=== PATIENT | female | born 1980 | race Caucasian/White ===

== ENCOUNTER → 2017-01-21 | Day surgery (SDC) | payer OTHER ==
[~2017-01-21] VITALS: Ht 167.6 cm; Wt 72.1 kg
[~2017-01-21] MED LIST: HYDROmorphone HCL 1 MG/ML SYRINGE (J1170) IV PRN; KETOROLAC 60 MG/2 ML VIAL (J1885) As Ordered ONE; LIDOCAINE 1% SDV INJ 30 ML VIAL As Ordered ONE; LIDOCAINE 2% INJ 100 MG/5 ML SDV (FOR ANES.) As Ordered ONE; LR 1,000 ML IV SCH; MAXA10TA14 PO; MIDAZOLAM INJ 2 MG/2 ML VIAL (J2250) As Ordered ONE; ONDANSETRON 4MG/2ML VIAL (J2405) As Ordered ONE; ONDANSETRON 4MG/2ML VIAL (J2405) IV PRN; PERCOCET 5MG/325MG TAB PO PRN; PROPOFOL 200 MG/20 ML VIAL As Ordered ONE; SILVER NITRATE APPLICATOR As Ordered ONE; dexameTHASONE 4 MG/ML 1ML VIAL (J1100) As Ordered ONE; fentaNYL 100 MCG/2 ML INJECTION (J3010) As Ordered ONE; fentaNYL 100 MCG/2 ML INJECTION (J3010) IV PRN
[2017-01-21 08:21] LABS: MEAN CORPUSCULAR HGB CONC 32.9 g/dl (32.0-36.5); MEAN CORPUSCULAR VOLUME 91.2 fl (80.0-96.0); RED CELL DISTRIBUTION WIDTH 12.9 % (11.5-14.5); WHITE BLOOD COUNT 5.8 K/mm3 (4.0-10.0)
[2017-01-21 08:27] LABS: CONTROL LINE HCG INT CTR LINE PRESENT
[2017-01-21 11:06] VITALS: BP 136/78
--- NOTE | 2017-01-26 06:32 | RO ---
DATE OF PROCEDURE: 01/21/2017 PREOPERATIVE DIAGNOSES: 1. Abnormal uterine bleeding. 2. Endometrial polyp. POSTOPERATIVE DIAGNOSES: 1. Abnormal uterine bleeding. 2. Endometrial polyp. PROCEDURE: 1. Diagnostic hysteroscopy. 2. Dilation and curettage. SURGEON: Triny Espinosa MD [employer]: None. ANESTHESIA: General LMA. ESTIMATED BLOOD LOSS: 10 mL. FLUIDS: 700 mL of Lactated Ringer's. URINE OUTPUT: Not recorded. CONDITION: Stable. COMPLICATIONS: None. SPECIMEN: Endometrial curettings. ANTIBIOTICS: Not indicated. INDICATION: The patient is a 36-year-old with abnormal uterine bleeding notable for endometrial bleeding and on ultrasound was noted to have an endometrial polyp. FINDINGS: Both ostia visualized bilaterally. Fluffy endometrium noted. On the right midbody there was noted to be approximately 5 mm polyp projecting from the endometrium. OPERATIVE PROCEDURE: The risks, benefits, indications and alternatives of procedure were reviewed with the patient and informed consent was obtained. The patient was taken to the operating room where general anesthesia was obtained without difficulty. The patient was placed in low lithotomy position using Danial stirrups and exam under anesthesia was then performed significant for a midline mobile 10 weeks size anteverted uterus with no adnexal masses or fullness appreciated. The patient was then prepped and draped in the sterile fashion and the bladder was drained using in-and-out catheter. A sterile speculum was placed in the patient's vagina and the cervix was visualized. Single-tooth tenaculum was then used to grasp the anterior lip of the cervix. Uterine sound was placed into the uterus and sounded to approximately 8 cm. The cervix was then gently serially dilated to a size 15 [place] Arash dilator. The hysteroscope was then first primed and a pressure set at mmHg. The hysteroscope was then advanced through the endocervical canal under direct visualization. After distension of the uterus with warm saline, somatic examination of the intrauterine cavity was then performed. No intrauterine lesions were noted and the tubal ostia were visualized bilaterally. The hysteroscope was then removed. A sharp curettage was then performed until gritty texture was noted. This was obtained and was sent to pathology for review. The single-tooth tenaculum was then removed from the anterior lip of the cervix. Tenaculum site was noted to be hemostatic. All instruments were removed from the patient's vagina. Hysteroscopic fluid deficit was 10 mL of normal saline. The patient tolerated the procedure well. At the completion of the case, sponge and needle counts were correct times two. The patient was taken to the PACU in stable condition.
== END ==
LOC: M SDC 07:37
PROVIDERS: ATTEND Obstetrics & Gynecology
DX: N93.9 Abnormal uterine and vaginal bleeding, unspecified (principal); N84.0 Polyp of corpus uteri; G43.909 Migraine, unspecified, not intractable, without status migrainosus; M54.5 Low back pain; F41.9 Anxiety disorder, unspecified; F17.210 Nicotine dependence, cigarettes, uncomplicated
CPT/HCPCS: 36415; 58558; 84703; 85027; 86850; 86900; 86901; 88305; J1100; J1885; J2250; J2405; J3010